=== PATIENT | female | born 1940 | race Caucasian/White ===

== ENCOUNTER 2016-04-09 22:03 | Emergency (ER) | payer MEDICARE ==
--- NOTE | 2016-04-10 00:03 | DIAGNOSTIC IMAGING REPORT ---
PROCEDURE: XR CHEST 1 VIEW INDICATION: COUGH, initial encounter TECHNIQUE: Portable AP view 11:44 p.m. COMPARISON: None. FINDINGS: Lungs are clear. Heart and mediastinum are normal. Thorax is normal. IMPRESSION: 1. Negative chest.
--- NOTE | 2016-04-10 00:36 | ED NURSING NOTES ---
Clinical Report - Nurses [facility] [address] [place] [address] 04/09/2016 22:09 Patient: PORFIRIO ABBASI TRIAGE Triage time 22:13 Apr 09 2016. Acuity: LEVEL 3. Chief Complaint: (chest pain). 22:14 04/09/16. --22:22 Rupa Portillo R.N. 22:14 04/09/16. BP: 121/99. HR: 78. RR: 16. O2 saturation: 98%. Temp: 98.4 F. --22:22 Rupa Portillo R.N. SEPSIS SCREEN: Sepsis Screen. Negative (no infection suspected/documented). JAZZ COMA SCORE: Jazz Coma Scale: 15- eyes open spontaneously (4); best verbal response- oriented x 4 (5); best motor response- obeys commands (6). --22:22 Rupa Portillo R.N. 22:14 04/09/16. Pain level now: 10. --01:21 Cresencio Payne R.N. Weight: 61.2 kg stated. Height/Length: 67 inches Per Patient. BMI: 21.2. --22:12 Rupa Portillo R.N. Medications OxyCONTIN Oral. --22:18 Rupa Portillo R.N. Xanax Oral. --22:18 Rupa Portillo R.N. TraZODone HCl Oral. --22:25 Rupa Portillo R.N. Aspirin Oral. --22:25 Rupa Portillo R.N. Omeprazole Oral. --22:26 Rupa Portillo R.N. Allergies Sulfa Antibiotics. --22:17 Rupa Portillo R.N. A couple antidepressants. --22:17 Rupa Portillo R.N. Medication/allergy information source: the patient. --22:22 Rupa Portillo R.N. History Arrived by private vehicle, and accompanied by family. Primary physician (Destini Boothe). Historian not patient. Onset. (2 weeks ago). ( points to pain over sternum and left axilla, associated with hot flashes sweating. weak, dizzy, and not feeling right). She has had weakness. No fever, cough, difficulty breathing or skin rash. Denies muscle aches. 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 PAST MEDICAL HX: Immunizations: has received pneumonia vaccine; seasonal influenza. SOCIAL HX: Heavy tobacco smoker- 1 pack per day. History of drug use: marijuana. (edible pot). No infectious disease exposure. ABUSE ASSESSMENT: No report of abuse. SELF HARM ASSESSMENT: A self harm assessment was performed. The patient answered "no" to the question "Have you recently felt down, depressed, or hopeless?", "Have you noticed less interest or pleasure in doing things?", "Do you have thoughts of harming or killing yourself?", "Are you here because you tried to hurt yourself?", "Have you ever tried to hurt yourself before today?", "Have you recently had thoughts about harming or killing others?" and "Do you have any dangerous items in your possession?". FALL RISK ASSESSMENT: Fall risk assessment completed. No fall risk identified. NUTRITIONAL RISK ASSESSMENT: The nutritional risk assessment revealed no deficiencies. FUNCTIONAL ASSESSMENT: Functional assessment: no impairments noted. LEARNING NEEDS ASSESSMENT: The learning needs assessment revealed no barriers. SKIN INTEGRITY ASSESSMENT: Skin integrity risk assessment completed. No skin integrity risk identified. --22:22 Rupa Portillo R.N. PROBLEMS: Hypercholesterolemia. Rheumatoid Arthritis. Fibromyalgia. Degenerative Joint Disease. --22:19 Rupa Portillo R.N. ADDITIONAL SURGERIES: Cancer throat. Carpal Tunnel Surgery. --22:19 Rupa Portillo R.N. Interventions ID band on patient. --22:22 Rupa Portillo R.N. PHYSICAL ASSESSMENT GENERAL / NEURO / PSYCH: Alert. Oriented X 4. Appears in no acute distress. HEENT: Pupils equal, round and reactive to light. Mucous membranes are pink. RESPIRATORY: Respirations not labored. Chest nontender. Breath sounds within normal limits. CVS: Normal sinus rhythm noted. Capillary refill less than 2 seconds. Pulses within normal limits. GI / : Abdomen soft and nontender. SKIN: Skin intact. Skin is warm and dry. Normal skin turgor. --22:26 Rupa Portillo R.N. NURSING PROGRESS NOTES 22:23 04/09/16. The initial plan of care for this patient includes an assessment with efforts to address the presence of pain; impairment of the cardiovascular system. This plan of care was discussed with the patient. cafeteria monitor, pulse oximeter and NIBP monitor placed on patient; cardiac surgeon- Lead II; monitor alarms on. EKG time: (22:23). EKG was performed by a nurse and shown to the ED physician. Portable chest x-ray. Patient gowned. Reassurance given to the patient and patient's family. Two patient identifiers checked. Call light placed in reach. Side rails up x 1. Bed placed in lowest position. Brakes of bed on. Patient ready for evaluation. --22:23 Rupa Portillo R.N. 22:28 04/09/2016 Site #1 started via IV in the left antecubital space with an 18g angiocath, with aseptic technique and good blood return; one attempt. Blood drawn: rainbow set. Labeled in the presence of the patient and sent to the lab. Saline lock flushed with 5 mL saline. --22:28 Rupa Portillo R.N. 23:35 04/09/2016 Started bag #1 1000 mL IV Fluids IV NS (Saline); at 1000 mL/hr over 1 hour(s) via site #1. Allergies verified and confirmed 5 rights. IV patency established. IV site checked: no pain, redness, or swelling. IV flushed thoroughly pre- and post-medication administration. --23:35 Rupa Portillo R.N. 23:36 04/09/16. BP: 144/57. HR: 71. RR: 16. O2 saturation: 95%. Pain level now 4/10. --23:36 Rupa Portillo R.N. 23:36 04/09/16. Cardiac rhythm: normal sinus rhythm. RESPIRATORY: No respiratory distress. CVS: Normal sinus rhythm noted. SKIN: Skin is warm and dry. Skin color within normal limits. --23:36 Rupa Portlilo R.N. 00:12 04/10/2016 IV Fluids IV NS Discontinued: bag #1 completed. Total amount infused: 1000 mL. IV patency established. IV site checked: no pain, redness, or swelling. IV flushed thoroughly. --00:12 Rupa Portillo R.N. 00:12 04/10/16. ( Patient refusing to give urine sample. She states there is no need and its feels its just a way to run up the bill. She states she just wants to go home. Dr Mcneil informed). --00:12 Rupa Portillo R.N. 00:31 04/10/2016 Site #1 removed upon discharge. Catheter intact. Bandaid applied. --00:31 Rupa Portillo R.N. 00:15 04/10/16. BP: 136/62. HR: 70. RR: 16. O2 saturation: 98%. --01:13 Cresencio Payne R.N. DISPOSITION / DISCHARGE 00:14 04/10/16. Cardiac rhythm: normal sinus rhythm. --00:14 Rupa Portillo R.N. 00:14 04/10/16. BP: 140/75. HR: 72. RR: 16. O2 saturation: 100%. Pain level now 4/10. --00:14 Rupa Portillo R.N. 00:55 04/10/16. BP: 140/75. HR: 79. RR: 16. O2 saturation: 97% on room air. Temp: 98.5 F. Pain level now: 0/10. --01:05 Cresencio Payne R.N. Departure time: 5. --01:05 Cresencio Payne R.N. 00:55. Condition at departure: improved. No learning barriers present. Discharge instructions provided and reviewed with the patient and family. Reviewed medication(s) (continue your usual medications). Reviewed referral to family practice for followup. Patient and family verbalized understanding. Written instructions provided in Kyrgyz. The patient was discharged by the physician. She was discharged home and accompanied by family. She left the Emergency Department ambulatory and via private vehicle. Family member driving. --01:06 Cresencio Payne R.N. Locked/Released at 04/10/2016 1:21 by Cresencio Payne R.N.
--- NOTE | 2016-04-10 00:36 | ED CLINICAL REPORT ---
Clinical Report - Physicians/Mid Levels [facility] [address] [place] [address] 04/09/2016 22:09 Patient: PORFIRIO ABBASI Time Seen: 22:11. Arrived- By private vehicle. Historian- patient. HISTORY OF PRESENT ILLNESS Chief Complaint: CHEST DISCOMFORT. fatigue, dizziness. At its maximum, severity described as mild. When seen in the E.D., severity described as mild. Modifying factors- worsened by movement and deep breaths. Not relieved by anything. This started about 2 weeks ago and is still present. It has been waxing/waning. The patient cannot recall the circumstances at the onset. It is described as sharp and "pain" and it is described as located in the central chest area. No nausea, vomiting or difficulty breathing. She has experienced diaphoresis. Similar symptoms previously: Recent medical care: Not recently seen/assessed. REVIEW OF SYSTEMS No fever, chills, cough, pedal edema or calf pain. No fainting episodes, headache, sore throat, blurred vision or abdominal pain. No black stools, difficulty with urination, skin rash, enlarged lymph nodes or joint pain. No bloody stools. All systems otherwise negative, except as recorded above. PAST HISTORY Problems: Hypercholesterolemia. Rheumatoid Arthritis. Fibromyalgia. Degenerative Joint Disease. Additional Surgeries: Cancer throat. Carpal Tunnel Surgery. Medications: Omeprazole Oral. Aspirin Oral. TraZODone HCl Oral. Xanax Oral. OxyCONTIN Oral. Allergies: A couple antidepressants. Sulfa Antibiotics. SOCIAL HISTORY Smoker- current status unknown. History of drug use: marijuana. No alcohol use. ADDITIONAL NOTES The nursing notes have been reviewed. PHYSICAL EXAM Vital Signs: 04/09/2016 22:14 BP: 121/99. HR: 78. RR: 16. O2 saturation: 98%. Temp: 98.4 F. Have been reviewed. Appearance: Alert. Oriented X3. No acute distress. Eyes: Pupils equal, round and reactive to light. Eyes normal inspection. ENT: Nose normal. Neck: Normal inspection. CVS: Normal heart rate and rhythm. Heart sounds normal. Pulses normal. Respiratory: No respiratory distress. Breath sounds normal. Abdomen: Soft and nontender. Back: Normal external inspection. No CVA tenderness. Skin: Skin warm and dry. Normal skin color. No rash. Normal skin turgor. Extremities: Extremities exhibit normal ROM. No lower extremity edema. Neuro: Oriented X 3. No motor deficit. No sensory deficit. LABS, X-RAYS, AND EKG EKG: EKG time: (2222). No acute process. No acute ischemia. Normal sinus rhythm. Rate: 76. Normal P waves. Normal VARUN. Normal QRS complex. Normal axis. Normal QT and QTc. Non-specific ST segment / T wave abnormalities. Prior EKG unavailable. The study has been interpreted contemporaneously by me. The study has been independently viewed by me. The EKG appears to be a good tracing. I agree with and confirm the computer reading of the EKG. Rhythm Strip #1: Time: (2216). Rate= 79. Normal sinus rhythm. Regular rhythm. Narrow QRS complexes. No ectopy. Conduction normal. Normal ST segments and T waves. The study was interpreted by me. Chest X-ray: No acute disease. Normal lung markings present. Normal heart size. Mediastinum normal. Great vessels normal. Soft tissues normal. No infiltrate. No fracture. No bony lesion present. Views: AP (portable). Technique: good. The X-rays were independently viewed by me, interpreted by the radiologist and contemporaneously by me and discussed with the radiologist. Prior films were not available for comparison. Laboratory Tests: CBC w Diff: (MANDA: 04/09/2016 22:28) ( MsgRcvd 04/09/2016 22:46) Final results Test Result Flag Units (Reference) WHITE BLOOD COUNT 7.9 K/uL (4.5-11.5) RED BLOOD COUNT 4.48 M/uL (4.00-5.20) HEMOGLOBIN 12.7 gm/dL (12.0-16.0) HEMATOCRIT 38.6 % (36.0-46.0) MEAN CELL VOLUME 86 fL (80-100) MEAN CORPUSCULAR HGB 28 pg (26-34) MEAN CORPUSCULAR HGB CONC 33 g/dL (31-37) RED CELL DISTRIBUTION WIDTH 13.7 % (11.6-14.8) PLATELET COUNT 237 K/uL (150-400) NEUTROPHIL % 50.9 % (50-75) LYMPH % 42.3 H % (25-40) MONO % 5.5 % (3-14) EOSINOPHIL % 0.8 % (0-4) BASOPHIL % 0.5 % (0-2) CHEM 13 PANEL: (MANDA: 04/09/2016 22:28) ( MsgRcvd 04/09/2016 22:56) Final results Test Result Flag Units (Reference) GLUCOSE 109 mg/dL (70-110) BUN 19 H mg/dL (7-18) CREATININE 1.1 mg/dL (0.6-1.3) Estimated GFR 51.60 mL/min Estimated GFR- >60 mL/min Note: Persistent reduction over 3 months in eGFR<60 mL/min/1.73 m2 defines CKD. Patients with eGFR values>=60 mL/min/1.73 m2 may also have CKD if evidence ofpersistent proteinuria. Additional information may be foundat www.kidney.org. SODIUM 142 mmol/L (136-145) POTASSIUM 3.6 mmol/L (3.5-5.1) CHLORIDE 104 mmol/L (98-107) CARBON DIOXIDE 29 mmol/L (21-32) CALCIUM 9.1 mg/dL (8.5-10.1) TOTAL PROTEIN 7.5 g/dL (6.4-8.2) ALBUMIN 3.5 g/dL (3.3-5.0) BILIRUBIN, TOTAL 0.6 mg/dL (0.0-1.0) ALKALINE PHOSPHATASE 58 U/L (46-116) AST (SGOT) 12 L U/L (15-37) ALT (SGPT) 18 U/L (12-78) CPK 39 U/L (24-260) MAGNESIUM 1.7 L mg/dL (1.8-2.4) TROPONIN I <0.05 ng/mL (0.00-1.5) TROPONIN REFERENCE RANGE:<0.1 NEGATIVE0.1-1.5 INDETERMINANT>1.5 POSITIVE . Pulse Oximetry: 04/09/2016 22:14 O2 saturation: 98%. (FIO2 - room air). Interpretation: normal. PROGRESS AND PROCEDURES Course of Care: Pt was given a liter of NS in the ED. She was worked up for her sx, and work-up was negative. Pt declined a UA, stating that she did not think she had a UTI, and was only interested in knowing if she'd had a heart attack. I did d/w pt that I do not believe her long-standing, mechanical CP is of cardiac origin. However, I have advised her that she should follow up with her PCP to arrange for a stress test to evaluate for any potential underlying CAD. Pt and daughter express understanding. Patient counseled in person regarding the patient's stable condition, test results, diagnosis and need for follow-up. Concerns were addressed. Old medical records reviewed. Disposition: Discharged. Condition: stable and improved. CLINICAL IMPRESSION Chest pain .12 lead EKG performed. No precordial pain. (Fatigue). INSTRUCTIONS (The tests that we were able to do tonight look good. A urinalysis would be helpful, as urinary tract infections are common in women, and a very common cause of feeling generally unwell. Please see your doctor if your symptoms continue through the week.). Warnings: GENERAL WARNINGS: Return or contact your physician immediately if your condition worsens or changes unexpectedly, if not improving as expected, or if other problems arise. Your Current Medications: CONTINUE TAKING THE FOLLOWING MEDICATIONS: Aspirin Oral. Omeprazole Oral. OxyCONTIN Oral. TraZODone HCl Oral. Xanax Oral. Follow-up: Follow up with your doctor in three days if not better. Understanding of the discharge instructions verbalized by patient. (Electronically signed by Debi Mcneil MD 04/17/2016 3:59)
--- NOTE | 2016-04-10 00:37 | ED ORDER SUMMARY ---
..... Patient: PORFIRIO ABBASI OrderSheet [facility] VisitID: [id number] [address] [place] [address] 75y, F Registration Date/Time: 04/09/2016 ORDER SHEET Weight: 61.2 kg (stated) Allergies: Sulfa Antibiotics, A couple antidepressants GENERAL ORDERS: EKG - ER Stat (22:27 04/09/2016 EInderbitzen R.N. verbal order read back to Del OBRIEN) (22:27 EInderbitzen R.N.) Cardiac Panel Stat (22:28 04/09/2016 EInderbitzen R.N. verbal order read back to Del OBRIEN) (Ack 22:30 OSnell) (23:25 EInderbitzen R.N.) Chest 1V Urgent (23:16 04/09/2016 Del OBRIEN) (Ack 23:25 OSnell) (23:50 RFay) Director Orange (Continuous) (23:16 04/09/2016 Del OBRIEN) (Ack 23:25 OSnell) (23:25 EInderbitzen R.N.) Pulse oximeter (23:17 04/09/2016 Del OBRIEN) (Ack 23:25 OSnell) (23:25 EInderbitzen R.N.) UA-Culture if indicated Urgent (23:38 04/09/2016 Del OBRIEN) (Ack 0:22 OSnell) (Cancelled: Patient Refusal1:14 Lyudmila R.N.) MEDICATION ORDERS: IV FLUIDS: IV Saline Lock (22:27 04/09/2016 EInderbitzen R.N. verbal order read back to Del OBRIEN) (22:35 EInderbitzen R.N.) IV NS : initial bolus 1000 mL (1000 mL/hr), then none - (NOW) (23:16 04/09/2016 Del OBRIEN) (23:35 EInderbitzen R.N.) ORDER SHEET NOTES: [Electronically signed by Cresencio Payne R.N. (01:21 04/10/2016)] [Electronically signed by Debi Mcneil MD (03:59 04/17/2016)] [Electronically locked/signed by Cresencio Payne R.N. (01:21 04/10/2016)]
--- NOTE | 2016-04-10 00:37 | ED ORDER SUMMARY ---
..... Patient: PORFIRIO ABBASI OrderSheet [facility] VisitID: [id number] [address] [place] [address] 75y, F Registration Date/Time: 04/09/2016 ORDER SHEET Weight: 61.2 kg (stated) Allergies: Sulfa Antibiotics, A couple antidepressants GENERAL ORDERS: EKG - ER Stat (22:27 04/09/2016 EInderbitzen R.N. verbal order read back to Del OBRIEN) (22:27 EInderbitzen R.N.) Cardiac Panel Stat (22:28 04/09/2016 EInderbitzen R.N. verbal order read back to Del OBRIEN) (Ack 22:30 OSnell) (23:25 EInderbitzen R.N.) Chest 1V Urgent (23:16 04/09/2016 Del OBRIEN) (Ack 23:25 OSnell) (23:50 RFay) Lace Burn Out Tender (Continuous) (23:16 04/09/2016 Del OBRIEN) (Ack 23:25 OSnell) (23:25 EInderbitzen R.N.) Pulse oximeter (23:17 04/09/2016 Del OBRIEN) (Ack 23:25 OSnell) (23:25 EInderbitzen R.N.) UA-Culture if indicated Urgent (23:38 04/09/2016 Del OBRIEN) (Ack 0:22 OSnell) (Cancelled: Patient Refusal1:14 Lyudmila R.N.) MEDICATION ORDERS: IV FLUIDS: IV Saline Lock (22:27 04/09/2016 EInderbitzen R.N. verbal order read back to Del OBRIEN) (22:35 EInderbitzen R.N.) IV NS : initial bolus 1000 mL (1000 mL/hr), then none - (NOW) (23:16 04/09/2016 Del OBRIEN) (23:35 EInderbitzen R.N.) ORDER SHEET NOTES: [Electronically signed by Cresencio Payne R.N. (01:21 04/10/2016)] [Electronically signed by Debi Mcneil MD (03:59 04/17/2016)] [Electronically locked/signed by Cresencio Payne R.N. (01:21 04/10/2016)]
--- NOTE | 2016-04-17 03:59 | ED DISCHARGE INSTRUCTIONS ---
Patient: PORFIRIO ABBASI General Instructions [facility] VisitID: [id number] [address] [place] [address] 75y, F Registration Date/Time: 04/09/2016 Chest pain .12 lead EKG performed. No precordial pain. (Fatigue). INSTRUCTIONS (The tests that we were able to do tonight look good. A urinalysis would be helpful, as urinary tract infections are common in women, and a very common cause of feeling generally unwell. Please see your doctor if your symptoms continue through the week.). Warnings: GENERAL WARNINGS: Return or contact your physician immediately if your condition worsens or changes unexpectedly, if not improving as expected, or if other problems arise. Your Current Medications: CONTINUE TAKING THE FOLLOWING MEDICATIONS: Aspirin Oral. Omeprazole Oral. OxyCONTIN Oral. TraZODone HCl Oral. Xanax Oral. Follow-up: Follow up with your doctor in three days if not better. Understanding of the discharge instructions verbalized by patient. ADDITIONAL INFORMATION Chest Pain, Uncertain Cause Chest pain can happen for a number of reasons. Sometimes the cause can not be determined. If yourcondition does not seem serious, and your pain does not appear to be coming from your heart, your doctor may recommend watching it closely. Sometimes the signs of a serious problem take more time to appear. Therefore, watch for the warning signs listed below. Home care After your visit, follow these recommendations: Rest today and avoid strenuous activity. Take any prescribed medicine as directed. Follow-up care Follow up with your doctor or this facility as instructed or if you do not start to feel better within 24 hours. Call 911 Get immediate medical attention if any of the following occur: A change in the type of pain: if it feels different, becomes more severe, lasts longer, or begins to spread into your shoulder, arm, neck, jaw or back Shortness of breath or increased pain with breathing Weakness, dizziness, or fainting Rapid heart beat Get prompt medical attention Call your doctor right away if any of the following occur: Cough with dark colored sputum (phlegm) or blood Fever of 100.4F(38C) or higher, or as directed by your health care provider Swelling, pain or redness in one leg You have been given the following additional information: Chest Pain, Uncertain Cause (Electronically signed by Debi Mcneil MD 04/17/2016 3:59)
--- NOTE | 2016-04-17 03:59 | ED MED RECONCILIATION SUMMARY ---
Patient: PORFIRIO ABBASI Medication Reconciliation Report [facility] VisitID: [id number] [address] [place] [address] 75y, F Registration Date/Time: 04/09/2016 Weight: 61.2 kg Height/Length: 67 in. BMI: 21.2 ALLERGIES: A couple antidepressants, Sulfa Antibiotics The patient's Home Medications are listed below: CONTINUE TAKING THE FOLLOWING MEDICATIONS: Aspirin Oral Omeprazole Oral OxyCONTIN Oral TraZODone HCl Oral Xanax Oral The source(s) of the original Home Medication information: patient The following Medications were given to the patient in the Emergency Department: IV NS IV Fluids bolus 0, then 1000 mL/hr, administered: 04/09/2016 11:35:00 PM The following Medications were prescribed to the patient: None.
--- NOTE | 2016-04-17 03:59 | ED MAR SUMMARY ---
..... Medication Administration Record [facility] [address] [place] [address] Patient: PORFIRIO ABBASI Visit ID: [id number] 75y, F Weight: 61.2 kg Height/Length: 67 in BMI: 21.2 ALLERGIES: A couple antidepressants, Sulfa Antibiotics Start 23:35 04/09/2016 Rupa Portillo R.N., Stop 00:12 04/10/2016 Rupa Portillo R.N. Medication Administered: IV NS (SALINE), Dose: IV Fluids over 1 hour(s), Rate: 1000 mL/hr, Dispensed: 1000 mL bag, Site: #1 left AC. Medication Ordered: IV NS : initial bolus 1000 mL (1000 mL/hr), then none - (NOW).
--- NOTE | 2016-04-17 03:59 | ED MAR SUMMARY ---
..... Medication Administration Record [facility] [address] [place] [address] Patient: PORFIRIO ABBASI Visit ID: [id number] 75y, F Weight: 61.2 kg Height/Length: 67 in BMI: 21.2 ALLERGIES: A couple antidepressants, Sulfa Antibiotics Start 23:35 04/09/2016 Rupa Portillo R.N., Stop 00:12 04/10/2016 Rupa Portillo R.N. Medication Administered: IV NS (SALINE), Dose: IV Fluids over 1 hour(s), Rate: 1000 mL/hr, Dispensed: 1000 mL bag, Site: #1 left AC. Medication Ordered: IV NS : initial bolus 1000 mL (1000 mL/hr), then none - (NOW).
--- NOTE | 2016-04-17 03:59 | ED MED RECONCILIATION SUMMARY ---
Patient: PORFIRIO ABBASI Medication Reconciliation Report [facility] VisitID: [id number] [address] [place] [address] 75y, F Registration Date/Time: 04/09/2016 Weight: 61.2 kg Height/Length: 67 in. BMI: 21.2 ALLERGIES: A couple antidepressants, Sulfa Antibiotics The patient's Home Medications are listed below: CONTINUE TAKING THE FOLLOWING MEDICATIONS: Aspirin Oral Omeprazole Oral OxyCONTIN Oral TraZODone HCl Oral Xanax Oral The source(s) of the original Home Medication information: patient The following Medications were given to the patient in the Emergency Department: IV NS IV Fluids bolus 0, then 1000 mL/hr, administered: 04/09/2016 11:35:00 PM The following Medications were prescribed to the patient: None.
--- NOTE | 2016-04-17 03:59 | ED DISCHARGE INSTRUCTIONS ---
Patient: PORFIRIO ABBASI General Instructions [facility] VisitID: [id number] [address] [place] [address] 75y, F Registration Date/Time: 04/09/2016 Chest pain .12 lead EKG performed. No precordial pain. (Fatigue). INSTRUCTIONS (The tests that we were able to do tonight look good. A urinalysis would be helpful, as urinary tract infections are common in women, and a very common cause of feeling generally unwell. Please see your doctor if your symptoms continue through the week.). Warnings: GENERAL WARNINGS: Return or contact your physician immediately if your condition worsens or changes unexpectedly, if not improving as expected, or if other problems arise. Your Current Medications: CONTINUE TAKING THE FOLLOWING MEDICATIONS: Aspirin Oral. Omeprazole Oral. OxyCONTIN Oral. TraZODone HCl Oral. Xanax Oral. Follow-up: Follow up with your doctor in three days if not better. Understanding of the discharge instructions verbalized by patient. ADDITIONAL INFORMATION Chest Pain, Uncertain Cause Chest pain can happen for a number of reasons. Sometimes the cause can not be determined. If yourcondition does not seem serious, and your pain does not appear to be coming from your heart, your doctor may recommend watching it closely. Sometimes the signs of a serious problem take more time to appear. Therefore, watch for the warning signs listed below. Home care After your visit, follow these recommendations: Rest today and avoid strenuous activity. Take any prescribed medicine as directed. Follow-up care Follow up with your doctor or this facility as instructed or if you do not start to feel better within 24 hours. Call 911 Get immediate medical attention if any of the following occur: A change in the type of pain: if it feels different, becomes more severe, lasts longer, or begins to spread into your shoulder, arm, neck, jaw or back Shortness of breath or increased pain with breathing Weakness, dizziness, or fainting Rapid heart beat Get prompt medical attention Call your doctor right away if any of the following occur: Cough with dark colored sputum (phlegm) or blood Fever of 100.4F(38C) or higher, or as directed by your health care provider Swelling, pain or redness in one leg You have been given the following additional information: Chest Pain, Uncertain Cause (Electronically signed by Debi Mcneil MD 04/17/2016 3:59)
== END 2016-04-10 00:55 | disposition home or self-care (01) ==
LOC: ED SRH 22:03
DX: R07.9 Chest pain, unspecified (principal); R53.83 Other fatigue; E78.00 Pure hypercholesterolemia, unspecified; Z79.82 Long term (current) use of aspirin; Z79.891 Long term (current) use of opiate analgesic; Z88.2 Allergy status to sulfonamides
CPT/HCPCS: 90100; 90616; 92610; 92720; 95059